=== PATIENT | female | born 1955 | race Caucasian/White ===

== ENCOUNTER 2018-03-28 17:00 | Inpatient (IN) | payer BC ==
[~2018-03-28] VITALS: Ht 157.5 cm; Wt 59.0 kg
[2018-03-28] MEDS ORDERED: NACL 0.9% 1,000 ML IV ONE ×2 (17:04)
[2018-03-28 17:08] VITALS: BP_SYST 159
[2018-03-28] MEDS ORDERED: ONDANSETRON HCL 4 MG/2 ML VIAL IVP ONE (17:15)
[2018-03-28] MEDS ORDERED: KETOROLAC TROMETHAMINE 30 MG VIAL IVP ONE (17:15)
[2018-03-28 17:37] LABS: BILIRUBIN,URINE NEGATIVE (NEGATIVE); BLOOD, URINE NEGATIVE (NEGATIVE); CLARITY/URINE CLEAR (CLEAR); COLOR,URINE YELLOW (YELLOW); GLUCOSE,URINE NEGATIVE (NEGATIVE); KETONES,URINE NEGATIVE (NEGATIVE); LEUKOCYTE ESTERASE ,URINE NEGATIVE (NEGATIVE); NITRITE, URINE NEGATIVE (NEGATIVE); PROTEIN URINE NEGATIVE (NEGATIVE); UROBILINOGEN,URINE 0.2 (0.2-1.0)
[2018-03-28 17:59] LABS: HEMATOCRIT 48.2 % (36-48); HEMOGLOBIN 16.1 g/dL (12.0-16.0); MEAN CORPUSCULAR HEMOGLOBIN 30 pg (27-31); MEAN CORPUSCULAR HGB CONC 33 % (32-36); MEAN CORPUSCULAR VOLUME 91 fL (79.0-98.0); PLATELET COUNT (AUTO) 565 K/uL (130-430); RED CELL DISTRIBUTION WIDTH 12.8 % (9.0-15.0)
[2018-03-28] MEDS ORDERED: MORPHINE 4 MG/ML INJ. SYRINGE IVP ONE (18:00)
[2018-03-28 18:04] LABS: WHITE BLOOD COUNT (AUTO) 24.7 K/uL (4.8-10.8)
[2018-03-28 18:07] LABS: CALCIUM 10.1 mg/dL (8.4-11.0); CREATININE 1.46 mg/dL (0.55-1.30)
[2018-03-28 18:10] LABS: ALBUMIN 3.5 g/dL (3.4-4.8); POTASSIUM 2.9 mmol/L (3.5-5.1); TOTAL BILIRUBIN 0.3 mg/dL (0.0-1.0)
[2018-03-28 18:11] LABS: BAND % (MANUAL) 3 % (0-6); BASOPHILS % (MANUAL) 0 % (0-2); EOSINOPHILS % (MANUAL) 1 % (0-7); LYMPHOCYTES % (MANUAL) 8 % (20-46); MONOCYTES % (MANUAL) 6 % (0-11); PROTHROMBIN TIME 10.2 SECS (9.5-12.5)
[2018-03-28] MEDS ORDERED: POTASSIUM CHLORIDE 20 MEQ/PKT PACKET PO ONE (18:15)
[2018-03-28] MEDS ORDERED: cefTRIAXone 1 GM IVPB PREMIX 50 ML IV ONE (19:15)
[2018-03-28 20:00] VITALS: BP_SYST 124
[2018-03-28 20:14] VITALS: BP_SYST 124
[2018-03-28] MEDS: NACL 0.9% 1,000 ML IV SCH (20:37)
[2018-03-28] MEDS ORDERED: HCT25 PO (20:43)
[2018-03-28] MEDS ORDERED: SIMV20TA2 PO (20:43)
[2018-03-28] MEDS ORDERED: POTA10TA15 PO (20:43)
[2018-03-28] MEDS ORDERED: VENL37.510 PO (20:43)
[2018-03-28] MEDS ORDERED: TRAM1TAB33 PO (20:43)
[2018-03-28] MEDS ORDERED: PRO20 PO (20:43)
[2018-03-28] MEDS ORDERED: CYCL10TA9 PO (20:43)
[2018-03-28] MEDS ORDERED: ALPR0.5T PO (20:43)
[2018-03-28] MEDS ORDERED: PIPERACILLIN/TAZOBACTAM 3.375 GM/VIAL (ZOSYN) IV ONE (21:35)
[2018-03-28] MEDS ORDERED: ONDANSETRON HCL 4 MG/2 ML VIAL IVP PRN (22:00)
[2018-03-28] MEDS ORDERED: ALBUTEROL SULFATE 0.083% 2.5 MG/3 ML VIAL.NEB INH PRN (22:00)
[2018-03-28] MEDS ORDERED: ACETAMINOPHEN 325 MG TABLET PO PRN (22:00)
[2018-03-28] MEDS ORDERED: MORPHINE 2 MG/ML INJ. SYRINGE IVP PRN (22:00)
[2018-03-28 22:30] VITALS: BP_SYST 124
[2018-03-28] MEDS ORDERED: ZOLPIDEM TARTRATE 5 MG TABLET PO PRN (22:45)
[2018-03-28] MEDS ORDERED: VANCOMYCIN HCL 1 GM/NS PREMIX 250 ML IV ONE (23:00)
[2018-03-28] MEDS: ZOSYN (PIPERACILLIN/TAZO) 3.375 GM in DEX-ISO (50ml) IV SCH (23:15)
[2018-03-28] MEDS ORDERED: VANCOMYCIN HCL 1000 MG/VIAL IV ONE (23:17)
[2018-03-29] MEDS ORDERED: PIPERACILLIN/TAZO 3.375/DEX-IS 50 ML IV SCH
[2018-03-29 00:05] VITALS: BP_SYST 109
[2018-03-29] MEDS: ZOSYN (PIPERACILLIN/TAZO) 3.375 GM in DEX-ISO (50ml) IV SCH (05:04)
[2018-03-29] MEDS: NACL 0.9% 1,000 ML IV SCH ×2 (05:07→09:01)
[2018-03-29 06:09] LABS: BASOPHILS % (AUTO) 0.2 % (0.0-2.0); EOSINOPHILS # (AUTO) 0.6 K/uL (0.0-0.4); EOSINOPHILS % (AUTO) 4.8 % (0.0-4.0); HEMATOCRIT 38.7 % (36-48); HEMOGLOBIN 12.9 g/dL (12.0-16.0); LYMPHOCYTES % (AUTO) 16.9 % (20.5-51.5); MEAN CORPUSCULAR HEMOGLOBIN 31 pg (27-31); MEAN CORPUSCULAR HGB CONC 33 % (32-36); MEAN CORPUSCULAR VOLUME 92 fL (79.0-98.0); MONOCYTES % (AUTO) 8.6 % (1.7-9.3); NEUTROPHILS # (AUTO) 8.4 K/uL (1.8-7.7); NEUTROPHILS % (AUTO) 69.5 % (40.0-70.0); PLATELET COUNT (AUTO) 356 K/uL (130-430); RED CELL DISTRIBUTION WIDTH 13.1 % (9.0-15.0)
[2018-03-29 06:15] LABS: ALBUMIN 2.2 g/dL (3.4-4.8); CREATININE 1.8 mg/dL (0.55-1.30); POTASSIUM 3.9 mmol/L (3.5-5.1); TOTAL BILIRUBIN 0.3 mg/dL (0.0-1.0)
[2018-03-29 06:27] LABS: CALCIUM 7.8 mg/dL (8.4-11.0)
[2018-03-29 08:53] VITALS: BP_SYST 123
[2018-03-29] MEDS ORDERED: Effexor 37.5 MG TAB PO SCH (09:00)
[2018-03-29] MEDS ORDERED: ALPRAZolam 0.25 MG TABLET PO SCH (09:00)
[2018-03-29] MEDS ORDERED: FLUoxetine HCL 20 MG CAPSULE (PROzac) PO SCH (09:00)
[2018-03-29] MEDS ORDERED: CEPH-568 PO (11:11)
[2018-03-29] MEDS ORDERED: PIPERACILLIN/TAZO 2.25G/DEX-IS 50 ML IV SCH (12:00)
[2018-03-29 12:12] VITALS: BP_SYST 125
[2018-03-29 12:13] VITALS: BP_SYST 125
[2018-03-29] MEDS ORDERED: SIMVASTATIN 20 MG TABLET PO SCH (21:00)
== END 2018-03-29 12:45 | disposition home health service (06) | DRG 690 ==
LOC: SED 17:00 → SMU 19:41 → STU 19:50
PROVIDERS: ADMIT Internal Medicine; ATTEND Internal Medicine
DX: N13.6 Pyonephrosis (principal); E87.5 Hyperkalemia; I10 Essential (primary) hypertension; E78.5 Hyperlipidemia, unspecified; F41.9 Anxiety disorder, unspecified; Z90.49 Acquired absence of other specified parts of digestive tract
CPT/HCPCS: 36415; 71045; 80053; 81003; 82150-TC; 82550-TC; 83605; 83690-TC; 83735-TC; 84484; 85007; 85025; 85027; 85610-TC; 85730-TC; 87040-TC; 90656; 93005; 96365; 96375; 99291; 99292; J0696; J1885; J2270; J2405; J2543; J3370; J7030; J7050

== ENCOUNTER 2022-03-23 11:57 | Emergency (ER) | payer BC, OTHER ==
[~2022-03-23] VITALS: Ht 157.5 cm; Wt 49.9 kg
[~2022-03-23 11:57] MED LIST: ALPR0.5T PO; CEPH-568 PO; CYCL10TA25 PO; EFF37 PO; HCT25 PO; POTA10TA15 PO; PRO20 PO; SIMV-343 PO; TRAM-350 PO
[2022-03-23 12:13] VITALS: BP_SYST 126
--- NOTE | 2022-03-23 12:25 | NUR ---
Patient to ER bed 7 to gown for evaluation. Side rails up. Report given to MANOJ MONTES DE OCA.
--- NOTE | 2022-03-23 12:26 | NUR ---
ER at bedside examining patient.
[2022-03-23] MEDS ORDERED: MORPHINE SULFATE 10 MG/ML VIAL IVP ONE (13:00)
[2022-03-23] MEDS ORDERED: BACITRACIN 1 GM OINT TP ONE (13:00)
[2022-03-23] MEDS ORDERED: DIPHTH,PERTUSS(ACELL),TET VAC 0.5 ML VIAL (Tdap) I.M. ONE (13:00)
--- NOTE | 2022-03-23 13:10 | NUR ---
PT MEDICATED AND WOUND CLEANED AND DRESSED.PT TOLERATED WELL.
--- NOTE | 2022-03-23 13:31 | NUR ---
Patient given written and verbal discharge instructions and verbalizes understanding. ER MD discussed with patient the results and treatment provided. Patient in stable condition. ID arm band removed. Opportunity for questions provided and answered. Medication side effect fact sheet provided.
[2022-03-23 13:32] VITALS: BP_SYST 126
== END 2022-03-23 13:31 | disposition home or self-care (01) ==
LOC: SED 11:57
DX: S61.412A Laceration without foreign body of left hand, initial encounter (principal); Z79.899 Other long term (current) drug therapy; W26.8XXA Contact with other sharp object(s), not elsewhere classified, initial encounter; Y93.89 Activity, other specified; Y92.89 Other specified places as the place of occurrence of the external cause; Y99.8 Other external cause status
CPT/HCPCS: 90715; 99283